=== PATIENT | female | born 1995 | race African-American/Black ===

== ENCOUNTER 2019-05-18 04:13 | Emergency (ER) | payer MEDICAID ==
[~2019-05-18] VITALS: Ht 167.6 cm; Wt 67.7 kg
[2019-05-18 04:15] VITALS: BP 140/112
--- NOTE | 2019-05-18 04:43 | NUR ---
Pt reports she has had increased frequency, pain and partial voiding. Pt denies fevers vomiting. Pt reports she gets UTI's after drinking soda, and she recently had a pepsi. Pt in NAD. Urine sent.
[2019-05-18 04:50] LABS: HCG UR SG 1.021 (1.003-1.030)
[2019-05-18 04:57] LABS: CULTURE INDICATED? YES; MICROSCOPIC INDICATED
--- NOTE | 2019-05-18 05:41 | NUR ---
Pt dc'd to home care. Pt alert and in NAD. Education provided on prescription, OTC medications, follow-up and S/Sx to return. Pt VU. Pt ambulated out of ER.
== END 2019-05-18 05:44 | disposition home or self-care (01) ==
LOC: ED 05:15
DX: N30.00 Acute cystitis without hematuria (principal)
CPT/HCPCS: 81001; 81025; 87086; 99283